=== PATIENT | female | born 2000 ===

== ENCOUNTER 2022-02-02 08:21 | Emergency (ER) | payer SELFPAY ==
--- NOTE | 2022-02-02 09:46 | Emergency Department Report ---
HPI - General Chief Complaint: Vaginal Bleeding Time Seen by Provider: 02/02/22 09:29 - [facility] HPI: Room 6 Patient is a 21-year-old female present with chief complaint of vaginal bleeding. The patient states she is 7 weeks and for the past 8 days she has had vaginal bleeding. Patient states yesterday the bleeding became heavier and she went through a total of 13 pads. Patient complains of pain in the lower abdomen and gives her pain a score of 10/10. Patient does not have an HEALTH COACH ED Past Medical Hx - Past Medical History Previous Medical History?: No - Surgical History Past Surgical History?: No - Family History Family history: no significant - Social History Smoking Status: Never Smoker Substance Use Type: None - Medications Home Medications: Home Medications Medication Instructions Recorded Confirmed Last Taken Type HYDROcodone/APAP 5-325 [[place] 1 - 2 each PO Q6HR PRN #10 tablet 02/02/22 Unknown Rx 5/325] ED Review of Systems ROS: Stated complaint: MISCARRIAGE/BLEEDING Other details as noted in HPI Constitutional: no symptoms reported Eyes: denies: eye pain ENT: denies: throat pain Respiratory: no symptoms reported Cardiovascular: denies: chest pain Endocrine: no symptoms reported Gastrointestinal: abdominal pain Genitourinary: abnormal menses Musculoskeletal: denies: back pain Neurological: denies: headache Physical Exam - Physical Exam Vital Signs: Vital Signs 02/02/22 08:26 Pulse Rate 86 Respiratory 17 Rate Blood Pressure 106/70 [Left] O2 Sat by Pulse 99 Oximetry Physical Exam: GENERAL: The patient is well-developed well-nourished female lying on stretcher not appearing to be in acute distress. [] HEENT: Normocephalic. Atraumatic. Extraocular motions are intact. Patient has moist mucous membranes. NECK: Supple. Trachea midline CHEST/LUNGS: Clear to auscultation. There is no respiratory distress noted. HEART/CARDIOVASCULAR: Regular. There is no tachycardia. There is no gallop rub or murmur. ABDOMEN: Abdomen is soft, with mild diffuse discomfort to palpation. There is no rebound or guarding. Patient has normal bowel sounds. There is no abdominal distention. SKIN: There is no rash. There is no edema. There is no diaphoresis. NEURO: The patient is awake, alert, and oriented. The patient is cooperative. The patient has no focal neurologic deficits. The patient has normal speech and gait. GCS 15 MUSCULOSKELETAL:There is no evidence of acute injury. ED Course Vital Signs 02/02/22 08:26 Pulse Rate 86 Respiratory 17 Rate Blood Pressure 106/70 [Left] O2 Sat by Pulse 99 Oximetry ED Medical Decision Making - Lab Data Result diagrams: 02/02/22 09:42 02/02/22 09:42 Laboratory Tests 02/02/22 02/02/22 02/02/22 09:42 09:42 09:42 WBC 10.6 RBC 3.82 Hgb 10.7 Hct 32.9 MCV 86 MCH 28 MCHC 33 RDW 14.4 Plt Count 252 Lymph % (Auto) 13.5 [place] % (Auto) 4.2 Eos % (Auto) 0.3 Baso % (Auto) 0.3 Lymph # (Auto) 1.4 Gentry # (Auto) 0.4 Eos # (Auto) 0.0 Baso # (Auto) 0.0 Seg Neutrophils % 81.7 H Seg Neutrophils # 8.6 H Sodium 136 L Potassium 4.7 Chloride 103.6 Carbon Dioxide 22 Anion Gap 15 BUN 8 Creatinine 0.5 L Estimated GFR > 60 BUN/Creatinine Ratio 16 Glucose 120 H Calcium 9.1 Total Bilirubin 0.20 AST 20 ALT 25 Alkaline Phosphatase 111 Total Protein 7.0 Albumin 4.5 Albumin/Globulin Ratio 1.8 HCG, Quant Blood Type O POSITIVE Antibody Screen Negative 02/02/22 09:57 WBC RBC Hgb Hct MCV MCH MCHC RDW Plt Count Lymph % (Auto) Gentry % (Auto) Eos % (Auto) Baso % (Auto) Lymph # (Auto) Gentry # (Auto) Eos # (Auto) Baso # (Auto) Seg Neutrophils % Seg Neutrophils # Sodium Potassium Chloride Carbon Dioxide Anion Gap BUN Creatinine Estimated GFR BUN/Creatinine Ratio Glucose Calcium Total Bilirubin AST ALT Alkaline Phosphatase Total Protein Albumin Albumin/Globulin Ratio HCG, Quant 1219 H Blood Type Antibody Screen - Radiology Data Radiology results: report reviewed (Pelvic ultrasound), image reviewed (Pelvic ultrasound) [facility] [address] [place] [address] Ultrasound Report Signed Patient: KONRAD RICHARDSON R#: [id number] : 2000 Acct:[id number] Age/Sex: 21 / F ADM Date: 02/02/22 Loc: ED Attending Dr: Ordering Physician: SAMIA BHATT MD Date of Service: 02/02/22 Procedure(s): US OB transvaginal Accession Number(s): [id number] cc: SAMIA BHATT MD Limited OB Ultrasound HISTORY: vag. Acute pelvic pain TECHNIQUE: Grayscale and color imaging performed. COMPARISON: None FINDINGS: Uterus measures 9.6 x 4.9 x 5.0 cm. There is an intrauterine cystic structure which is low to mid uterus which is slightly crescentic in appearance. Mean diameter is 2.6 cm which would correspond with an EGA of 7 weeks and 4 days. No pole or yolk sac identified although there does appear to be an amniotic membrane. The ovaries are unremarkable. No pelvic free fluid. IMPRESSION: Intrauterine cystic structure as outlined above with no pole identified and with a crescentic appearance. This could represent a gestational sac but correlate with beta-hCG level and if needed follow-up pelvic ultrasound. Signer Name: Eduardo Hartley MD Signed: 02/02/2022 10:14 AM Workstation Name: [id number] Transcribed By: JW Dictated By: Eduardo Hartley MD Electronically Authenticated By: Eduardo Hartley MD Signed Date/Time: 02/02/22 1014 DD/ 1000 TD/TT: - Differential Diagnosis Spontaneous , incomplete , threatened Critical care attestation.: If time is entered above; I have spent that time in minutes in the direct care of this critically ill patient, excluding procedure time. ED Disposition Clinical Impression: Inevitable Disposition: 01 HOME / SELF CARE / HOMELESS Is pt being admited?: No Does the pt Need Aspirin: No Condition: Stable Instructions: Miscarriage Additional Instructions: Return to the emergency department should you develop worsening symptoms, inability to tolerate food or liquids, high fever or any other concerns Prescriptions: HYDROcodone/APAP 5-325 [[place] 5/325] 1 - 2 each PO Q6HR PRN #10 tablet PRN Reason: Pain Referrals: JANEE PALMA MD [Staff Physician] - ROSA M (Dr Palma is an HEALTH COACH. Please follow-up with him for further evaluation) Time of Disposition: 12:23
--- NOTE | 2022-02-02 10:19 | Ultrasound Report ---
Limited OB Ultrasound HISTORY: vag. Acute pelvic pain TECHNIQUE: Grayscale and color imaging performed. COMPARISON: None FINDINGS: Uterus measures 9.6 x 4.9 x 5.0 cm. There is an intrauterine cystic structure which is low to mid uterus which is slightly crescentic in appearance. Mean diameter is 2.6 cm which would corresp ond with an EGA of 7 weeks and 4 days. No pole or yolk sac identified although there does appea r to be an amniotic membrane. The ovaries are unremarkable. No pelvic free fluid. IMPRESSION: Intrauterine cystic structure as outlined above with no pole identified and with a crescentic appearance. This could represent a gestational sac but correlate with beta-hCG level and i f needed follow-up pelvic ultrasound. Signer Name: Eduardo Hartley MD Signed: 02/02/2022 10:14 AM Workstation Name: [id number]
[2022-02-02 10:32] LABS: Basophils % (Auto) 0.3 % (0.0-1.8); Eosinophils % (Auto) 0.3 % (0.0-4.3); Hematocrit 32.9 % (30.3-42.9); Hemoglobin 10.7 gm/dl (10.1-14.3); Lymphocytes # (Auto) 1.4 K/mm3 (1.2-5.4); Lymphocytes % (Auto) 13.5 % (13.4-35.0); Mean Corpuscular HGB Conc 33 % (30-34); Mean Corpuscular Volume 86 fl (79-97); Monocytes # (Auto) 0.4 K/mm3 (0.0-0.8); Monocytes % (Auto) 4.2 % (0.0-7.3); Platelet Count 252 K/mm3 (140-440); Red Blood Count 3.82 M/mm3 (3.65-5.03); Red Cell Distribution Width 14.4 % (13.2-15.2)
[2022-02-02 11:07] LABS: Alanine Aminotransferase 25 units/L (7-56); Albumin 4.5 g/dL (3.9-5); Blood Urea Nitrogen 8 mg/dL (7-17); Calcium 9.1 mg/dL (8.4-10.2); Hemolysis Index 0
[2022-02-02 11:22] LABS: BUN/Creatinine Ratio 16
[2022-02-02] MEDS ORDERED: HYDROcodone/ACETAMINOPHEN 5-325 MG TAB PO ONE (11:22)
[2022-02-02 12:47] VITALS: BP 103/53
== END 2022-02-02 12:57 | disposition home or self-care (01) ==
LOC: ED 08:21
DX: O03.4 Incomplete spontaneous abortion without complication (principal); Z79.899 Other long term (current) drug therapy; Z3A.01 Less than 8 weeks gestation of pregnancy
CPT/HCPCS: 36415; 76817; 80053; 84702; 85025; 86850; 86900; 86901; 99284